=== PATIENT | male | born 1975 | race Caucasian/White ===

== ENCOUNTER 2021-01-29 13:43 | Emergency (ER) | payer OTHER ==
[~2021-01-29 13:43] MED LIST: FLEXERIL 10 MG10 MG PO; KEFLEX CAP 500500 MG PO; ULTRAM50 MG PO
[2021-01-29 14:20] LABS: HEMOGLOBIN 14.9 gm/dl (14.0-17.5); RED BLOOD COUNT 4.94 M/UL (4.20-5.50)
[2021-01-29 14:51] LABS: BUN/CREATININE RATIO 15 (0-10)
== END 2021-01-29 18:03 | disposition home or self-care (01) ==
LOC: ER1 13:43
DX: R07.9 Chest pain, unspecified (principal); F17.210 Nicotine dependence, cigarettes, uncomplicated
CPT/HCPCS: 71045; 80053; 82550; 82553; 83874; 84484; 85025; 93005; 99285